=== PATIENT | male | born 1970 | race Two or more races ===

== ENCOUNTER 2018-05-02 10:16 | Outpatient (CLI) | payer OTHER ==
[~2018-05-02 10:16] MED LIST: COZAAR50 MG; ORPH100T PO
== END 2018-05-02 10:28 | disposition home or self-care (01) ==
LOC: LAB 10:16
DX: I10 Essential (primary) hypertension (principal); Z13.1 Encounter for screening for diabetes mellitus; Z12.11 Encounter for screening for malignant neoplasm of colon; Z12.5 Encounter for screening for malignant neoplasm of prostate

== ENCOUNTER 2018-10-06 07:31 | Outpatient (CLI) | payer OTHER | END 2018-10-06 08:57 | disposition home or self-care (01) | LOC: LAB 07:31 | DX: L23.89 Allergic contact dermatitis due to other agents (principal) ==

== ENCOUNTER 2019-05-22 06:54 | Outpatient (CLI) | payer OTHER | END 2019-05-22 07:03 | disposition home or self-care (01) | LOC: LAB 06:54 | DX: E78.49 Other hyperlipidemia (principal); Z00.00 Encounter for general adult medical examination without abnormal findings; I10 Essential (primary) hypertension; E55.9 Vitamin D deficiency, unspecified; N42.30 Unspecified dysplasia of prostate ==

== ENCOUNTER 2019-06-15 08:54 | Outpatient (CLI) | payer OTHER | END 2019-06-15 09:04 | disposition home or self-care (01) | LOC: RAD 08:54 | DX: M25.512 Pain in left shoulder (principal) ==

== ENCOUNTER 2019-08-01 07:18 | Outpatient (CLI) | payer OTHER | END 2019-08-01 07:26 | disposition home or self-care (01) | LOC: SONOGRAMA 07:18 | DX: M25.512 Pain in left shoulder (principal) ==

== ENCOUNTER 2019-11-21 13:29 | Outpatient (CLI) | payer OTHER | END 2019-11-21 13:59 | disposition home or self-care (01) | LOC: MRI 13:29 | PROVIDERS: ATTEND Physical Medicine & Rehabilitation | DX: M75.102 Unspecified rotator cuff tear or rupture of left shoulder, not specified as traumatic (principal) | CPT/HCPCS: 73221 ==

== ENCOUNTER → 2020-01-01 06:13 | Outpatient (CLI) | payer OTHER ==
[~2020-01-01 06:13] MED LIST changes: +LOSARTAN-HCTZ1 EACH PO
== END | disposition home or self-care (01) ==
LOC: LAB 06:13
PROVIDERS: ATTEND Orthopaedic Surgery
DX: I10 Essential (primary) hypertension (principal)

== ENCOUNTER 2020-01-11 05:50 | Day surgery (SDC) | payer OTHER | END 2020-01-11 13:20 | disposition home or self-care (01) | LOC: CIR.AMB 05:50 | PROVIDERS: ATTEND Orthopaedic Surgery | DX: M75.122 Complete rotator cuff tear or rupture of left shoulder, not specified as traumatic (principal); M75.42 Impingement syndrome of left shoulder; Z20.828 Contact with and (suspected) exposure to other viral communicable diseases ==

== ENCOUNTER 2020-02-03 07:24 | Outpatient (CLI) | payer OTHER | END 2020-02-03 12:50 | disposition home or self-care (01) | LOC: LAB 07:24 | PROVIDERS: ATTEND Physical Medicine & Rehabilitation | DX: Z20.828 Contact with and (suspected) exposure to other viral communicable diseases (principal); Z11.59 Encounter for screening for other viral diseases ==

== ENCOUNTER 2020-02-23 07:09 | Outpatient (CLI) | payer OTHER | END 2020-02-23 07:15 | disposition home or self-care (01) | LOC: LAB 07:09 | PROVIDERS: ATTEND Physical Medicine & Rehabilitation | DX: Z20.828 Contact with and (suspected) exposure to other viral communicable diseases (principal); R50.9 Fever, unspecified ==

== ENCOUNTER → 2020-10-16 06:18 | Outpatient (CLI) | payer OTHER | END | disposition home or self-care (01) | LOC: LAB 06:18 | PROVIDERS: ATTEND Internal Medicine Cardiovascular Disease | DX: I20.8 Other forms of angina pectoris (principal); E27.0 Other adrenocortical overactivity; E78.2 Mixed hyperlipidemia; E03.4 Atrophy of thyroid (acquired); E27.5 Adrenomedullary hyperfunction ==

== ENCOUNTER 2022-04-29 07:31 | Outpatient (CLI) | payer OTHER | END 2022-04-29 07:35 | disposition home or self-care (01) | LOC: RAD 07:31 | PROVIDERS: ATTEND General Practice | DX: M65.30 Trigger finger, unspecified finger (principal); M79.642 Pain in left hand ==

== ENCOUNTER 2024-07-04 15:03 | Emergency (ER) | payer OTHER ==
[~2024-07-04] VITALS: Ht 182.9 cm; Wt 94.3 kg
[2024-07-04] MEDS ORDERED: KETOROLAC TROMETHAMINE 60 MG VIAL IM ONE ×2 (18:37→18:45)
[2024-07-04] MEDS ORDERED: TRIAMCINOLONE ACETONIDE 40 MG/ML VIAL ONE (18:38)
[2024-07-04] MEDS ORDERED: TRIAMCINOLONE ACETONIDE 40 MG/ML VIAL IM ONE (18:45)
[2024-07-04] MEDS ORDERED: DICLOFENAC SODI50 MG PO (19:37)
== END 2024-07-04 21:29 | disposition home or self-care (01) ==
LOC: ER 15:06
DX: M25.511 Pain in right shoulder (principal); I10 Essential (primary) hypertension
CPT/HCPCS: 73030; 96372; 99283; J1885; J3301

== ENCOUNTER 2024-07-12 12:01 | Outpatient (CLI) | payer OTHER ==
[~2024-07-12 12:01] MED LIST changes: +DICLOFENAC SODI50 MG PO
== END 2024-07-12 12:07 | disposition home or self-care (01) ==
LOC: MRI 12:01
PROVIDERS: ATTEND Preventive Medicine Public Health & General Preventive Medicine
DX: M25.511 Pain in right shoulder (principal)
CPT/HCPCS: 73221

== ENCOUNTER 2025-01-16 18:22 | Emergency (ER) | payer OTHER ==
[~2025-01-16] VITALS: Ht 182.9 cm; Wt 92.5 kg
[2025-01-16] MEDS ORDERED: KETOROLAC TROMETHAMINE 30 MG VIAL IV STA (19:11)
[2025-01-16] MEDS ORDERED: METOCLOPRAMIDE HCL 5 MG/ML VIAL IM STA (19:11)
[2025-01-16] MEDS ORDERED: DIPHENHYDRAMINE HCL 50 MG/ML VIAL 1ML IM STA (19:12)
[2025-01-16] MEDS ORDERED: HALOPERIDOL LACTATE 5 MG/ML AMPUL IM STA (19:12)
== END 2025-01-16 22:11 | disposition home or self-care (01) ==
LOC: ER 18:22
DX: G43.909 Migraine, unspecified, not intractable, without status migrainosus (principal)